=== PATIENT | male | born 1950 | race Caucasian/White ===

== ENCOUNTER 2020-06-06 06:45 | Inpatient (IN) | payer OTHER, MEDICAID, SELFPAY ==
[~2020-06-06] VITALS: Ht 170.2 cm; Wt 68.9 kg
[2020-06-06 07:03] VITALS: BP_SYST 146
--- NOTE | 2020-06-06 07:03 | NUR ---
Pt biba from [facility] to bed 8 for evaluation. Hooked to cont quality assurance monitor. Siderails up x2
--- NOTE | 2020-06-06 07:10 | NUR ---
Patient biba in the ED for low oxygen saturation per facility staff. Denied any chest pain or shortness of breath. Denied any fevers, chills, nausea or vomiting. Patient is alert and oriented x3, respirations even and unlabored, and speaking in full sentences. VSS, pain level 0/10. Informed of the approximate wait time. Instructed to notify ED staff for any changes in condition or worsening of symptoms while waiting to be seen by an ED provider. Patient verbalized understanding.
--- NOTE | 2020-06-06 07:15 | NUR ---
# 20 gauge angiocath placed to right hand. Use of asceptic technique. Opsite placed over site. Blood return noted. Blood for lab drawn from site. Flushed with 10 cc of normal saline. No evidence of infiltration noted. Patient tolerated well.
--- NOTE | 2020-06-06 07:25 | NUR ---
assessment technician at bedside collecting blood specimen as ordered by Dr. Vanessa Back. Patient tolerated the procedure well.
[2020-06-06] MEDS ORDERED: IPRATROPIUM/ALBUTEROL SULFATE 3 ML AMPUL.NEB (DUONEB) INH ONE (07:30)
--- NOTE | 2020-06-06 07:44 | NUR ---
X-ray done at bedside as ordered by Dr. Vanessa Back. Patient tolerated the procedure well.
[2020-06-06 07:51] LABS: BASOPHILS # (AUTO) 0.1 K/uL (0.0-0.2); BASOPHILS % (AUTO) 0.5 % (0.0-2.0); EOSINOPHILS % (AUTO) 0.2 % (0.0-4.0); HEMOGLOBIN 13.4 g/dL (14.0-18.0); MEAN CORPUSCULAR HEMOGLOBIN 30 pg (27-31); MEAN CORPUSCULAR HGB CONC 33 % (32-36); MEAN CORPUSCULAR VOLUME 91 fL (79.0-98.0); MONOCYTES # (AUTO) 0.5 K/uL (0.0-1.0); MONOCYTES % (AUTO) 2.2 % (1.7-9.3); NEUTROPHILS % (AUTO) 92.1 % (40.0-70.0); PLATELET COUNT (AUTO) 372 K/uL (130-430); RED BLOOD CELL COUNT(AUTO) 4.53 MIL/uL (4.2-6.2); RED CELL DISTRIBUTION WIDTH 15.6 % (9.0-15.0); WHITE BLOOD COUNT (AUTO) 20.6 K/uL (4.8-10.8)
[2020-06-06] MEDS ORDERED: LORazepam 2 MG/ML VIAL IVP ONE (08:00)
--- NOTE | 2020-06-06 08:00 | NUR ---
Administered Ativan 1mg IVP as ordered by Dr. Vanessa Back. Patient tolerated the medications well. See eMAR for details.
[2020-06-06 08:11] LABS: CALCIUM 10.8 mg/dL (8.4-11.0); CREATININE 2.7 mg/dL (0.55-1.30); POTASSIUM 3.6 mmol/L (3.5-5.1)
[2020-06-06 08:15] LABS: INR 1.2 (0.80-1.20)
[2020-06-06 08:17] LABS: ALBUMIN 3.1 g/dL (3.4-4.8); TOTAL BILIRUBIN 0.6 mg/dL (0.0-1.0)
[2020-06-06] MEDS ORDERED: LORazepam 2 MG/ML VIAL ONE (08:17)
--- NOTE | 2020-06-06 08:31 | NUR ---
RT at bedside administering inhalation treatment as ordered by Dr. Vanessa Back. Patient tolerated the medication well.
[2020-06-06] MEDS ORDERED: cefTRIAXone 1 GM IVPB PREMIX 50 ML IV ONE (09:15)
[2020-06-06] MEDS ORDERED: NS 1000 ML IV.SOLN IV ONE (09:15)
[2020-06-06] MEDS ORDERED: KETAMINE 30 MG/3 ML SYRINGE IVP ONE (09:15)
[2020-06-06] MEDS ORDERED: KETAMINE 30 MG/3 ML SYRINGE ONE (09:35)
[2020-06-06] MEDS ORDERED: INSULIN ASPART 100 UNITS/ML, 10 ML VIAL (NovoLOG) SUBCUT PRN (09:45)
--- NOTE | 2020-06-06 09:47 | NUR ---
Patient will be admitted to care of Dr. Zak Griffin. Admitted to telemetry unit. Waiting for room assignment, MST drywall stripper not available. Belongings list to be completed. Complete and up to date summary to be report printed. SBAR report to be given at bedside with opportunity for questions.
[2020-06-06 09:50] LABS: BILIRUBIN,URINE NEGATIVE (NEGATIVE); BLOOD, URINE 3+ (NEGATIVE); COLOR,URINE YELLOW (YELLOW); GLUCOSE,URINE 1+ (NEGATIVE); KETONES,URINE NEGATIVE (NEGATIVE); LEUKOCYTE ESTERASE ,URINE 3+ (NEGATIVE); NITRITE, URINE NEGATIVE (NEGATIVE); PROTEIN URINE 2+ (NEGATIVE); UROBILINOGEN,URINE 0.2 (0.2-1.0)
[2020-06-06 09:52] LABS: CLARITY/URINE CLOUDY (CLEAR)
[2020-06-06] MEDS ORDERED: LIP20 PO (09:54)
[2020-06-06] MEDS ORDERED: BISA10SU61 RC (09:54)
[2020-06-06] MEDS ORDERED: HYD10 PO (09:54)
[2020-06-06] MEDS ORDERED: HYDR20TA PO (09:54)
[2020-06-06] MEDS ORDERED: ACET325T PO (09:54)
[2020-06-06] MEDS ORDERED: ACET-73 PO (09:54)
[2020-06-06] MEDS ORDERED: CYAN500T47 PO (09:54)
[2020-06-06] MEDS ORDERED: CRAN500T2 PO (09:54)
[2020-06-06] MEDS ORDERED: DOCU-144 PO (09:54)
[2020-06-06] MEDS ORDERED: ASPI-1393 PO (09:54)
[2020-06-06 09:58] LABS: BACTERIA,URINE FEW /HPF (None Seen); MUCUS,URINE 1+ /LPF (None Seen); WBC,URINE >100 /HPF (0-3)
[2020-06-06] MEDS ORDERED: FERR-69 PO (10:06)
[2020-06-06] MEDS ORDERED: DOLU1TAB PO (10:06)
[2020-06-06] MEDS ORDERED: LACT10SO7 PO (10:06)
[2020-06-06] MEDS ORDERED: LATA7.5D OP (10:06)
[2020-06-06] MEDS ORDERED: CYM30 PO (10:06)
--- NOTE | 2020-06-06 10:24 | NUR ---
Patient will be admitted to care of Dr. Griffin. Admitted to Telemetry unit. Will go to room 103B. Belongings list completed. Complete and up to date summary report printed. SBAR report to be given at bedside with opportunity for questions.
[2020-06-06] MEDS ORDERED: INSULIN LISPRO SLIDING SCALE 100 UNITS/ML VIAL (humaLOG) SUBCUT PRN (10:30)
[2020-06-06] MEDS ORDERED: GLUCOSE (DEXTROSE) ORAL GEL -Adults PO PRN (10:45)
[2020-06-06] MEDS ORDERED: D5W 1,000 ML IV PRN (10:45)
[2020-06-06] MEDS ORDERED: DEXTROSE 50%-WATER 50 ML DISP.SYRIN IVP PRN (10:45)
--- NOTE | 2020-06-06 10:55 | NUR ---
ADMISSION NOTE Received patient from ER via gurney. Patient admitted with diagnosis of urosepsis. Patient is awake, alert, oriented X 3. Patient oriented to hospital room, call light, toileting, pain management and safety-teach back done. Patient informed that will kiersten nurse and that their room number is 110B. Personal belongings checked and Belongings List documented. Call light within reach.02@ 3liters nasal cannula @ 98%.
--- NOTE | 2020-06-06 11:04 | NUR ---
Received lactic acid 11.0.patient received 2 liters of normal saline at ER.
--- NOTE | 2020-06-06 11:17 | NUR ---
CONSULT ID SEPSIS DR PHILL CARTER [id number] S/W GABE MATTHEWS
--- NOTE | 2020-06-06 11:20 | NUR ---
photos of the wound cleanse with ns, photos taken and wound care done. wound care nurse informed and consulted. please see chart of the photos.
[2020-06-06 12:00] VITALS: BP_SYST 91
[2020-06-06] MEDS: KCL 20 mEq in NS 1000 mL 1,000 ML IV SCH ×3 (12:07→21:29)
--- NOTE | 2020-06-06 12:30 | NUR ---
blood sugar 202. held insulin coverage patient refused to eat lunch
[2020-06-06] MEDS ORDERED: FLU VACC QS2020-21(65UP)/PF 0.7 ML/SYRINGE I.M. PRN (12:45)
[2020-06-06 14:27] VITALS: BP_SYST 91
[2020-06-06 15:32] VITALS: BP_SYST 101
--- NOTE | 2020-06-06 16:00 | NUR ---
Tamika Griffin for d-dimer elevated.s/w debora answering services. waiting to callback.
[2020-06-06] MEDS ORDERED: ASPIRIN 81 MG TABLET(ECOTRIN) PO ONE (16:45)
[2020-06-06] MEDS ORDERED: ACETAMINOPHEN 325 MG TABLET PO PRN (16:45)
[2020-06-06] MEDS ORDERED: HYDROCORTISONE 10 MG TABLET (CORTEF) PO SCH (16:45)
[2020-06-06] MEDS ORDERED: HYDROCORTISONE 10 MG TABLET (CORTEF) PO ONE (16:45)
[2020-06-06] MEDS ORDERED: DOCUSATE SODIUM 100 MG CAPSULE PO SCH (16:45)
[2020-06-06] MEDS ORDERED: DULoxetine HCL 30 MG CAPSULE.DR (CYMBALTA) PO ONE (16:45)
[2020-06-06] MEDS ORDERED: BISACODYL 10 MG/SUPPOSITORY RC ONE (16:45)
--- NOTE | 2020-06-06 16:52 | NUR ---
CONSULT NEPHROLOGY ACUTE RENAL FAILURE DR SAMRIENTO [phone] S/W [facility]
--- NOTE | 2020-06-06 16:58 | NUR ---
CONSULT HEMATOLOGY ELEVATED D DIMER DR PEREZ [phone] S/W [facility] OFFICE
--- NOTE | 2020-06-06 17:04 | NUR ---
MD SANDOVAL IS HERE INFORMED ABOUT THE LABS RESULT. NEW ORDER RECEIVED. S/W NM TECH STATED WILL DO VQ SCAN TOMORROW @ 8 AM.
--- NOTE | 2020-06-06 18:00 | NUR ---
blood sugar 192. held insulin coverage patient wants to eat later. will endorsed to incoming nurse. vital sign stable, afebrile. saturation 96-98%. on 3 liters nasal cannula.
--- NOTE | 2020-06-06 19:55 | NUR ---
OPENING NOTES Received report from RODNEY Biswas. Patient resting in bed, AAOx3, breathing evenly on 3L of oxygen via NC. Patient has an IV on the right hand 20g, patent and benign, IVF running, patient tolerating it well. Patient said he will eat soon, will notify CAR FERRY MASTER to help feed the patient. Educated patient on plan of care, fall/safety/aspiration precautions, call light system, patient stated understanding. No s/s of distress at this time, no other needs at this time. Fall/safety/aspiration precautions, will continue to monitor.
[2020-06-06] MEDS: DOCUSATE SODIUM 100 MG CAPSULE PO SCH (20:48)
[2020-06-06] MEDS: ATORVASTATIN 20 MG TABLET PO SCH (20:49)
[2020-06-06 20:50] VITALS: BP_SYST 149
[2020-06-06] MEDS: INSULIN LISPRO SLIDING SCALE 100 UNITS/ML VIAL (humaLOG) SUBCUT PRN (21:01)
--- NOTE | 2020-06-06 21:01 | NUR ---
MEDICATIONS/ROUNDS Patient resting in bed, awake, breathing evenly on 3L of oxygen via NC. Educated patient on due medications, patient stated understanding. BS checked, coverage was needed and given. Administered medications, patient tolerated them well. Patient was fed and ate 25% with ELECTRIC SERVICEMAN. Hygiene care was done with ELECTRIC SERVICEMAN. Patient left watching TV. No s/s of distress at this time, no other needs at this time. Fall/safety/aspiration precautions, will continue to monitor.
[2020-06-06 23:45] VITALS: BP_SYST 94
--- NOTE | 2020-06-06 23:45 | NUR ---
AIRCRAFT MAINTENANCE MANAGER REPORTED PATIENT'S BP 80'S/40'S. PATIENT'S SBP LOW 70'S, HIGHEST BP TAKEN 94/58, PATIENT LETHARGIC , COOL, AND CLAMMY, 02 SAT ON 3L OF OXYGEN VIA NC FLUCTUATING 90-98%, BS 231. PATIENT STILL RESPONDING TO STIMULI. ASKED COFFEE SHOP MANAGER TO PAGE DR. SANDOVAL.
--- NOTE | 2020-06-06 23:46 | NUR ---
PAGES I PAGED DR. NIKO Bolton I SPOKE WITH JOYCE
--- NOTE | 2020-06-06 23:50 | NUR ---
PATIENT'S SBP LOW 70'S, HIGHEST BP TAKEN 94/58, PATIENT LETHARGIC , COOL, AND CLAMMY, AND SHAKING, BS TAKEN, RESULT WAS 231. SPOKE AND NOTIFIED DR. LORI MD ORDERED TO TRANSFER TO ICU#1 FOR LOW BP AND LETHARGY, 1L NS BOLUS THEN CONTINUE CURRENT IVF AFTER, HEPARIN DRIP PER PHARMACY, DISCONTINUE ROCEPHIN, ZOSYN 4.5GM IVPB Q8H, PULMONARY CONSULT WITH DR. HAY FOR POSSIBLE PE.
[2020-06-07] VITALS (24 sets, daily range): BP systolic 55–146
[2020-06-07] MEDS ORDERED: NACL 0.9% 1,000 ML IV ONE
[2020-06-07] MEDS ORDERED: *HEPARIN PER PHARMACY XX ONE
--- NOTE | 2020-06-07 00:02 | NUR ---
LATEST BP 83/42, O2 SAT 98% ON 3L OF OXYGEN VIA NC, PATIENT STILL RESPONDING AND AOX2-3, LETHARGIC. 1L NS BOLUS WAS STARTED ON RIGHT HAND 20G. NOTIFIED CLINICAL INFORMATICS SPECIALIST REGARDING NEED TO TRANSFER PATIENT TO ICU, SHE SAID TO CALL ICU. ICU CHARGE NURSE NOTIFIED REGARDING PATIENT AND ALSO MD WANTS PATIENT TO BE ON ICU#1, CHARGE NURSE SAID ROOM #1 IS NOT AVAILABLE AND TO TRANSFER PATIENT 0015. PATIENT BEING PREPARED FOR TRANSFER.
[2020-06-07] MEDS ORDERED: HEPARIN SODIUM,PORCINE 2000 UNITS/0.4 ML BOLUS IVP PRN (00:15)
[2020-06-07] MEDS ORDERED: HEPARIN 25,000 UNITS in 250 ML PREMIX IV PRN (00:15)
[2020-06-07] MEDS ORDERED: HEPARIN SODIUM,PORCINE 3000 UNITS/0.6 ML BOLUS IVP PRN (00:15)
--- NOTE | 2020-06-07 00:20 | NUR ---
TRANSFER Pt received from telemetry via bed accompanied by telemetry staff. No IV site present. Pt alert/ oriented to self and place. Pt incontinent of urine. Oxygen in use 3L/min nasal cannula. Systolic BP 55. One attempt with 18ga successful right wrist, IV fluids resumed.
[2020-06-07] MEDS ORDERED: HEPARIN SODIUM,PORCINE 5,000 UNITS/ML VIAL IV ONE (00:30)
--- NOTE | 2020-06-07 00:30 | NUR ---
TRANSFERRED TO ICU BED 2, REPORT GIVEN VIA SBAR TO RODNEY ASHTON.
--- NOTE | 2020-06-07 01:32 | NUR ---
PAGED FOR ORDERS DIALED: [phone] SPOKE TO: SANCHEZ
--- NOTE | 2020-06-07 01:50 | NUR ---
PAGED FOR ORDERS (2ND ATTEMPT) DIALED: [phone] SPOKE TO: SANCHEZ
[2020-06-07] MEDS: HYDROCORTISONE SOD SUCC 100 MG/2 ML VIAL IVP SCH ×4 (02:00→21:14)
--- NOTE | 2020-06-07 02:16 | NUR ---
PAGED FOR ORDERS (3RD ATTEMPT) DIALED: [phone] SPOKE TO: SANCHEZ
[2020-06-07] MEDS ORDERED: HYDROCORTISONE SOD SUCC 100 MG/2 ML VIAL ONE (02:17)
--- NOTE | 2020-06-07 02:20 | NUR ---
DR LORI Griffin notified regarding low MAP, you placement for output, and PICC line placement (pt a difficult stick). Orders received. 1. Levophed drip ordered 2. You insertion 3. PICC line placement
[2020-06-07] MEDS ORDERED: NOREPINEPHRINE BITARTRATE 4 MG in D5W 246 ML IV PRN (02:30)
--- NOTE | 2020-06-07 02:45 | NUR ---
Holbrook: 16F Holbrook catheter placed using sterile technique, patient tolerated well. Cloudy Yellow Urine noted, hanging below bladder and draining. Catheter secured into place onto right inner thigh.
--- NOTE | 2020-06-07 02:50 | NUR ---
PIV: 22G PIV placed into Right AC, secured into place, flash present and flushed with NS.
[2020-06-07] MEDS ORDERED: NOREPINEPHRINE 4 MG/4 ML VIAL IV ONE (02:58)
[2020-06-07] MEDS ORDERED: PIPERACILLIN/TAZOBACTAM 4.5 GM/VIAL (ZOSYN) IV ONE (04:14)
[2020-06-07] MEDS ORDERED: PIPERACILLIN/TAZO 4.5GM/DEX-IS 100 ML IV SCH (06:00)
[2020-06-07] MEDS: INSULIN LISPRO SLIDING SCALE 100 UNITS/ML VIAL (humaLOG) SUBCUT PRN ×4 (07:20→20:41)
--- NOTE | 2020-06-07 07:25 | NUR ---
OPENING NOTE Patient resting in the bed. No acute distress. On O2 3L/min via NC. O2 sat=97%. Adjusted O2 to 2L/min via NC. O2 sat=97%. Respiration even and unlabored. Skin warm and dry to touch. IV intact to LAC, no redness, no swelling, no drainage. On KCL 20mEq in NS at 125ml/hr and Heparin drip at 1200units/hr, infusing well. SL intact to RAC and right wrist, no redness, no swelling, patent. F/C intact, drain gravity with cloudy urine. Safety measure maintained. Call light within reached. Bed locked in low position, side rails up. Will continue to monitor.
--- NOTE | 2020-06-07 08:36 | NUR ---
Nutrition Update Marcelino scale 16 noted. Pt admitted for sepsis. Diet: [facility], [place] Diet BMI: 22.7 kg/m2 RD to follow per nutrition care standards.
[2020-06-07] MEDS: BISACODYL 10 MG/SUPPOSITORY RC SCH ×2 (09:00→09:11)
[2020-06-07] MEDS ORDERED: cefTRIAXone 1 GM in D5W 50 ML IV SCH (09:00)
[2020-06-07] MEDS ORDERED: HYDROCORTISONE 10 MG TABLET (CORTEF) PO SCH (09:00)
[2020-06-07] MEDS: DULoxetine HCL 30 MG CAPSULE.DR (CYMBALTA) PO SCH (09:11)
[2020-06-07] MEDS: KCL 20 mEq in NS 1000 mL 1,000 ML IV SCH ×2 (09:11→17:53)
[2020-06-07] MEDS: ASPIRIN 81 MG TABLET(ECOTRIN) PO SCH (09:11)
[2020-06-07] MEDS: DOCUSATE SODIUM 100 MG CAPSULE PO SCH ×2 (09:11→20:34)
--- NOTE | 2020-06-07 09:27 | NUR ---
HEPARIN DRIP STOPPED PER PROTOCOL.
--- NOTE | 2020-06-07 09:32 | NUR ---
Provided PTT from critical value call from lab to RODNEY TRAN. PTT > 150.
--- NOTE | 2020-06-07 09:55 | NUR ---
OFF UNIT TO VQ SCAN VIA GURNEY WITH PORTABLE HEART MONITOR IN STABLE CONDITION.
--- NOTE | 2020-06-07 10:20 | NUR ---
BACK TO UNIT FROM VQ SCAN VIA GURNEY WITH PORTABLE HEART MONITOR IN STABLE CONDITION.
--- NOTE | 2020-06-07 10:45 | NUR ---
SEEN AND EXAMINED BY STERLING HURTADO.
--- NOTE | 2020-06-07 11:23 | NUR ---
SEEN AND EXAMINED BY PHILL MARKS DEVESH.
--- NOTE | 2020-06-07 12:44 | NUR ---
II=476 Humalog insulin 4 units given per sliding scale. No acute distress. Continue on O2 2L/min via NC. F/C intact, drain gravity. Safety measure maintained. Call light within reached. Continue to monitor.
[2020-06-07] MEDS ORDERED: MENTHOL/ZINC OXIDE 113 GM OINT. TP PRN (13:45)
--- NOTE | 2020-06-07 14:41 | NUR ---
PTT - 63.8 Heparin drip restarted @ 1000 units/hr Witnessed IV drip titration.
--- NOTE | 2020-06-07 14:44 | NUR ---
RESUME HEPARIN DRIP PTT=63.8, resume Heparin drip and decreased 200 units per hr from the pervious rate per protocol. Witness by charge nurse Johnny, verify by pharmacist Erich. Will repeat PTT in 6 hr per protocol.
--- NOTE | 2020-06-07 14:50 | NUR ---
PICC LINE PLACEMENT DONE AT BEDSIDE AND OKAY TO USE PER PICC NURSE.
--- NOTE | 2020-06-07 15:08 | NUR ---
WOUND EVALUATION: Wound Consult received from Dr. Griffin. Thank you, Dr. Griffin, for the consult. Patient received in a [place] Bed with an IsoFlex LUCHO mattress with low air loss therapy, awake, alert, confused. Patient is unable to turn in bed independently. Marcelino Score is a 17. Past Medical History: HIV, Hyperlipidemia, Glaucoma. Admitted for Acute Hypoxia and Altered Mental Status. Diagnosed with Sepsis, Acute Renal Failure and Diabetes Mellitus. Recent Labs: WBC 20.6, RBC 4.53, hgb 13.4, hct 41.0, POC glucose 236, sodium 132, chloride 97, BUN 26, creatinine 2.70, GFR 25, glucose 226, alkaline phosphatase 135, BNP 199, albumin 3.1, PTT 63.8, D-dimer 1590.Microbiology: Blood culture results x2 in progress. Urine culture results in progress. MRSA screen results in progress. Intrinsic factors that delay wound healing: HIV, Acute Renal Failure, Hypoalbuminemia, Diabetes Mellitus. Extrinsic factors that delay wound healing: Decreased immobility. Wound Assessment: 1. Left Perianal area: Generalized erythema with MASD from IAD, present on admission. Open area has 100% yellow tissue (may be infected versus pressure ulcer). No odor, no drainage. Periwound erythematous. Surrounding tissue erythematous. Wound measures 0.7 cm x 0.3 cm. Recommend: Cleanse wound with normal saline. Apply Calmoseptine cream to wound and evi-wound. Apply Venelex ointment to wound bed. Cover with 4x4 foam dressing. Perform wound care daily, and as needed for dressing soiling or dislodgement. 2. Perianal area: Generalized erythema from IAD, present on admission. Recommend: Cleanse site with mild soap and water. Apply Calmoseptine cream to site. Perform site care qid as needed for soiling. Consider fecal management system if stool is loose and voluminous. 3. Sacral area: sDTI, present on admission. Site has dark purple discoloration. No odor, no drainage. Site measures 1.7 cm x 0.3 cm. Recommend: Cover site with sacral foam dressing. Change dressing daily and as needed for soiling or dislodgment. Also recommend: Reposition patient Side to side only every 2 hours with pillow support and off-load pressure areas with pillows for pressure re-distribution. Offload, elevate and float bilateral heels with one pillow lengthwise under each extremity at all times. Perform skin care and monitor skin integrity Q shift. Use Calmoseptine cream on buttocks and other moisture susceptible areas QID and as needed for soiling. Maintain patient on a low air-loss mattress. Addendum: 06/07/20 at 1548 by Yamil Londono RN Addendum: 4. Bilateral Lower Extremities: Multiple, multiple dry excoriations, present on admission. Recommend: No dressings needed. Continue to monitor sites every shift.
--- NOTE | 2020-06-07 17:15 | NUR ---
CLOSING NOTE Patient resting in the bed. No acute distress. PICC line intact to CHANTELLE, no redness, no swelling, patent, covered with clean and dry dressing. ON Heparin drip at 1000 units/hr and KCl 20mEq in NS at 125ml.hr, infusing well. F/C intact, drain gravity. All needs met. Safety measure maintained. Call light within reached. Bed locked in low position, side rails up. Will endorse to night nurse.
[2020-06-07] MEDS: PIPERACILLIN/TAZO 2.25G/DEX-IS 50 ML IV SCH (17:53)
[2020-06-07] MEDS: ACETAMINOPHEN 500 MG TABLET PO PRN ×2 (18:08→20:38)
--- NOTE | 2020-06-07 18:15 | NUR ---
SEEN AND EXAMINED BY ALESSANDRA BALLRAD WITH ORDER RECEIVED. PER DR. PEREZ, D/C HEPARIN DRIP IF US OF DROPPLER STUDY WITH NEGATIVE DVT.
--- NOTE | 2020-06-07 19:15 | NUR ---
change of shift.;victor hugo present. inquired of pt's general status.sherriern day-shift apprised of pt's general status.masoud conveyed to vq-scan results.us:doppler to be performed w/in the evening.the heparin drip infusing@ the rate:1000-u/hr=10ml/hr.the pt.submitted to hemo-dialysis therapy:06/07/20.pt.presents quiescent affect;calm,resting. pt.presents picc line;location;rt.upper bicept.intact.iv fluids infusing.pt.presents heparin drip infusing.pt.presents you cath intact;patent urine content present.general status stable.respiratory status stable.o2-sat%=98%.o2 therapy adminstered@ the rate;2l/min /hr via nasal cannulae.
--- NOTE | 2020-06-07 20:00 | NUR ---
pt.assessed.v/s assessed values w/in normal limits.o2-sat%=98%.picc line intact;patent iv fluids infusing.heparin-drip infusing@the rate:10ml/zu=5277-x/hr.you cath intact;patent urine content present.pt.assessed for cleanliness.pt.repositioned.general status stable.respiratory status stable;unlabored.call light/telephone placed w/in access of the pt.
--- NOTE | 2020-06-07 20:30 | NUR ---
i have assessed the blood glucose;value;207mg/dl.i have apprised the pt.of the blood glucose value.pt.will required insulin coverage administration per the sliding scale.parameters.
[2020-06-07] MEDS: ATORVASTATIN 20 MG TABLET PO SCH (20:34)
--- NOTE | 2020-06-07 21:00 | NUR ---
2100pmedications administered.pt.had requested dinner tray to be fed w medications.i have acquiest to the pt's requests pt.capable ti ingest po medications w/out difficulty.i have administered insulin;humalog;4-units per the sliding scale parameters. Addendum: 06/08/20 at 0259 by Kendall Paniagua RN pt.had requested medication;pain.i have administered tylenol:1000mg po ex-strength.to assess the efficacy of the pain medication per pain medication protocol.
--- NOTE | 2020-06-07 22:00 | NUR ---
based upon ptt level;47.9 :heparin drip protocol. i have increased the heparin drip rate to 11ml/hr =1100u/hr. Addendum: 06/07/20 at 2220 by Kendall Paniagua RN Amended: Links added.
--- NOTE | 2020-06-07 22:00 | NUR ---
Lise Argueta increase rate of heparin drip from 1000 units/hr to 1100 units per hour equivalent to 10-11mls/hr.
--- NOTE | 2020-06-07 22:30 | NUR ---
us:doppler tech present.preformed the doppler scan of the lower extremities;bilateral r/o dvt.preliminary results.the tech stated negative dvt lower extremities bilateral
--- NOTE | 2020-06-07 22:30 | NUR ---
had ordered:d/c the heparin drip contingent upon the results of the us:doppler scan.if results negative dvt lower extremities bilateral.i have d/c the heparin-drip.i have apprised yaneli/chg.
--- NOTE | 2020-06-07 22:37 | NUR ---
PAGED DR. SANDOVAL FOR ORDERS DIALED: [phone] SPOKE TO: SANCHEZ
--- NOTE | 2020-06-07 22:59 | NUR ---
PAGED DR. SANDOVAL FOR ORDERS (2ND ATTEMPT) DIALED: [phone] SPOKE TO: SANCHEZ
[2020-06-07] MEDS ORDERED: MORPHINE 4 MG/ML INJ. SYRINGE IVP PRN (23:15)
[2020-06-08] VITALS (20 sets, daily range): BP systolic 97–144
[2020-06-08] MEDS ORDERED: NALOXONE HCL 0.4 MG/ML AMP (NARCAN) IVP PRN
--- NOTE | 2020-06-08 | NUR ---
pt.assessed.v/s assessed values w/in normal limits.pt.had requested medication;pain.i have administered.morphine;2mg ivp.to assess the efficacy of the pain medication per pain mgx protcol.pt.assessed for cleanliness.pt.repositioned.picc line intact;patent iv fluids infusing.i have administered zosyn;abx;ivpb midnight dose.general status stable.respiratory status;02-sat%=98%.call light/telephone w/in access of the pt.
[2020-06-08] MEDS: MORPHINE 2 MG/ML INJ. SYRINGE IVP PRN ×5 (00:04→23:14)
[2020-06-08] MEDS: PIPERACILLIN/TAZO 2.25G/DEX-IS 50 ML IV SCH ×5 (00:05→23:15)
[2020-06-08] MEDS ORDERED: MORPHINE 2 MG/ML INJ. SYRINGE ONE (00:20)
--- NOTE | 2020-06-08 01:00 | NUR ---
pt.presents affect;restless/agitation.i have administered ativan;1mg ivp;to assess the efficacy of the medication. per medication protocol.general status stable.respiratory status stable;unlabored.
[2020-06-08] MEDS: LORazepam 2 MG/ML VIAL IVP PRN ×4 (01:17→16:52)
[2020-06-08] MEDS ORDERED: LORazepam 2 MG/ML VIAL ONE ×2 (01:35→05:51)
--- NOTE | 2020-06-08 02:00 | NUR ---
pt.assessed.v/s assessed values w/in normal limits.o2-sat%=98%.picc line intact;patent iv fluids infusing.you cath intact;patent urine content present. per flacc pain mgx pt.absent facial grimaces/body posturing.pt.assessed for cleanliness.pt.repositioned.general status stable,respiratory status stable;unlabored.call light/telephone placed w/in access of the pt.
--- NOTE | 2020-06-08 04:00 | NUR ---
pt.assessed.v/s assessed.pt.requested medication;pain.i have administered morphine;2mg ivp.to assess the efficacy of the pain medication per pain mgx protocol.o2-sat%=98%.picc line intact;patent iv fluids infusing.i have changed the iv fluids bag.you cath intact;patent urine content present.pt.had requested water;fresh.i have provide the water.general status stable.respiratory status stable;unlabored.call light/telephone placed w/in access of the pt.
[2020-06-08] MEDS: KCL 20 mEq in NS 1000 mL 1,000 ML IV SCH ×3 (04:26→23:56)
[2020-06-08] MEDS: HYDROCORTISONE SOD SUCC 100 MG/2 ML VIAL IVP SCH ×3 (05:28→21:34)
--- NOTE | 2020-06-08 06:25 | NUR ---
pt.assessed.pt.presented affect;restless.i have administered ativan;1mg ivp.pt.requested medication;pain.i have administered morphine;2mg ivp. v/s values w/in normal limits.iv access picc line intact;patent you cath intact;patent urine content present.o2-sat%=98%pt.assessed for cleanliness.pt.repositioned.blood glucose assessed value;201.mg/dl.i have administered insulin;humalog;2-units. call light/telephone placed w/in access of the pt. Addendum: 06/08/20 at 0631 by Kendall Paniagua RN i have weighed the pt.2/t chf dx.
[2020-06-08] MEDS: INSULIN LISPRO SLIDING SCALE 100 UNITS/ML VIAL (humaLOG) SUBCUT PRN ×4 (06:35→21:38)
[2020-06-08 07:26] LABS: BASOPHILS % (AUTO) 0.2 % (0.0-2.0); EOSINOPHILS % (AUTO) 0.1 % (0.0-4.0); HEMATOCRIT 26.7 % (36-54); HEMOGLOBIN 8.9 g/dL (14.0-18.0); LYMPHOCYTES % (AUTO) 10.2 % (20.5-51.5); MEAN CORPUSCULAR HEMOGLOBIN 30 pg (27-31); MEAN CORPUSCULAR HGB CONC 33 % (32-36); MEAN CORPUSCULAR VOLUME 90 fL (79.0-98.0); MONOCYTES # (AUTO) 0.4 K/uL (0.0-1.0); NEUTROPHILS # (AUTO) 8.3 K/uL (1.8-7.7); NEUTROPHILS % (AUTO) 85.5 % (40.0-70.0); PLATELET COUNT (AUTO) 167 K/uL (130-430); RED BLOOD CELL COUNT(AUTO) 2.98 MIL/uL (4.2-6.2); RED CELL DISTRIBUTION WIDTH 15.5 % (9.0-15.0); WHITE BLOOD COUNT (AUTO) 9.7 K/uL (4.8-10.8)
[2020-06-08 07:48] LABS: TOTAL IRON BIND. CAPACITY 103 ug/dL (250-450)
[2020-06-08 07:56] LABS: ALBUMIN 2.1 g/dL (3.4-4.8); CALCIUM 8.1 mg/dL (8.4-11.0); CREATININE 2.11 mg/dL (0.55-1.30); TOTAL BILIRUBIN 0.3 mg/dL (0.0-1.0)
[2020-06-08] MEDS: DOCUSATE SODIUM 100 MG CAPSULE PO SCH ×2 (08:22→20:22)
[2020-06-08] MEDS: DULoxetine HCL 30 MG CAPSULE.DR (CYMBALTA) PO SCH (08:22)
[2020-06-08] MEDS: BISACODYL 10 MG/SUPPOSITORY RC SCH (08:22)
[2020-06-08] MEDS: ASPIRIN 81 MG TABLET(ECOTRIN) PO SCH (08:23)
[2020-06-08 08:25] LABS: THYROID STIMULATING HORMONE 0.18 uIu/mL (0.34-4.82)
--- NOTE | 2020-06-08 10:00 | NUR ---
30-Received patient awake alert oriented to person and time with O2 2 liters nasal cannula O2 saturation 98% HOB at 30 degrees. With ongoing IVF NS with 20 meq KCL at 125ml/hour via right PICC line dressing clean dry intact with biopatch, with good blood return easily flushes. With you catheter to gravity drainage with clear yellow output with securement device. Patient on a airloss mattress. Sacral foam dressing clean dry intact. Elevated bilateral heels with pillow support. 0830-Patient fed breakfast, aspiration precaution done. Oral care done. 1000-Made rounds with Dr Daugherty at the bedside,plan of care was discussed verbalized understanding Addendum: 06/08/20 at 1916 by Beverly Og RN 0730-Received patient awake alert oriented to person and time with O2 2 liters nasal cannula O2 saturation 98% HOB at 30 degrees. With ongoing IVF NS with 20 meq KCL at 125ml/hour via right PICC line dressing clean dry intact with biopatch, with good blood return easily flushes. With you catheter to gravity drainage with clear yellow output with securement device. Patient on a airloss mattress. Sacral foam dressing clean dry intact. Elevated bilateral heels with pillow support. refused SCD educated patient regarding importance. with left wrist immobilzer patient verbalized he came to the hospital with it. right FA IV removed catheter intact 0830-Patient fed breakfast, aspiration precaution done. Oral care done. 1000-Made rounds with Dr Daugherty at the bedside,plan of care was discussed verbalized understanding
--- NOTE | 2020-06-08 10:27 | NUR ---
1007-Chanda from lab called reported positive MRSA nares. Called Dr Bello awaiting reply 1027-Dr Bello called and notified of MRSA nares with new orders carried out. Also robertfied of WBC and other lab reports with new orders carried out
--- NOTE | 2020-06-08 10:28 | NUR ---
Contact precaution done. Educated patient on PPE and good handwashing reorientation done
[2020-06-08] MEDS ORDERED: MUPIROCIN 2% TOPICAL OINTMENT 22 GM NS ONE (11:00)
--- NOTE | 2020-06-08 12:00 | NUR ---
No acute distress at this time. denies pain 0/10 scale. no respiratory distress. frequent reorientation done. continue to monitor.
--- NOTE | 2020-06-08 14:17 | NUR ---
Dietitian Recommendations * Recommend [facility] diet w/ Glucerna TID, Reji BID (supplements provide an additional 840 kcal/day, 35 gm protein/day) CECILIA ABREU Please refer to Nutrition Assessment for details. Addendum: 06/08/20 at [address] Amended: Links added.
--- NOTE | 2020-06-08 15:22 | NUR ---
patients eyes closed ,O2 saturation 99% on O2 2 liters nasal cannula. no acute distress
--- NOTE | 2020-06-08 19:00 | NUR ---
IV intact no sign and symptoms of infiltration. PICC line dressing clean dry intact . With O2 2 liters nasal cannula HOB at 30 degrees. no respiratory distress O2 saturation 100% Fed patient meals. oral care done. pericare done frequently and applied skin moisture barrier cream. sacral dressing clean dry intact. frequent reorientation done. patient refuses SCD machine education was given. Report given to Vaishali STEVENS, transferred to telemetry as ordered.
--- NOTE | 2020-06-08 19:10 | NUR ---
CHANGE OF SHIFT; report given by ICU nurse, just got transferred from ICU. no respiratory distress. on contact isolation for MRSA nares. on fall risk precaution. call light at bedside.
--- NOTE | 2020-06-08 20:00 | NUR ---
NOTES: pt. awake, alert but disoriented. yells every now and then. O2@ 2 liters per nasal cannula. IV infusing via rt. upper arm PICC line. IV lock on left ac. left arm immobilizer/brace in place. noted bruising on both arms deb. right side. on potline monitor and shows sinus rhythm. you cath to osd. on contact isolation fro mRSA nares. call light at bedside.
[2020-06-08] MEDS: MUPIROCIN 2% TOPICAL OINTMENT 22 GM NS SCH (20:23)
[2020-06-08] MEDS: ATORVASTATIN 20 MG TABLET PO SCH (20:23)
--- NOTE | 2020-06-08 21:40 | NUR ---
NOTES: due medications given. BS checked 215 with sliding scale coverage given. repositioned.
--- NOTE | 2020-06-08 23:15 | NUR ---
NOTES: pt. been yelling that he is hungry and also in pain. gave jello and milk and tolerated well. medicated with Morphine IV as ordered for c/o generalized pain. repositioned. observed contact isolation for MRSA nares.
[2020-06-09] VITALS: BP_SYST 142
--- NOTE | 2020-06-09 00:15 | NUR ---
NOTES: still awake, given water. pt. needs attended. IV antibiotic in progress.
--- NOTE | 2020-06-09 01:32 | NUR ---
NOTES: pt. still awake, been yelling on and off, confused. been asking for water and gave some, asking for pain medicine and reminded been given as well. condition observed.
[2020-06-09] MEDS: ACETAMINOPHEN 500 MG TABLET PO PRN (03:12)
--- NOTE | 2020-06-09 03:16 | NUR ---
NOTES: pt. wants Tylenol ES for his generalized pain and given, more water given. condition observed and guarded.
--- NOTE | 2020-06-09 04:29 | NUR ---
NOTES: kept quiet for a short time and now yelling again, took off O2 and getting anxious. been asking for drink of water.
[2020-06-09] MEDS: LORazepam 2 MG/ML VIAL IVP PRN ×4 (04:52→22:07)
--- NOTE | 2020-06-09 04:55 | NUR ---
NOTES: pt. repositioned, partial am care done. medicated with IV Ativan for anxiety.pulling out his leads/gown. reoriented.
--- NOTE | 2020-06-09 05:30 | NUR ---
NOTES: pt. quiet and get short sleep. continue to monitor.
[2020-06-09] MEDS: PIPERACILLIN/TAZO 2.25G/DEX-IS 50 ML IV SCH (05:50)
--- NOTE | 2020-06-09 06:00 | NUR ---
NOTES: Dr. Dumont here, updated on pt. status. sleeping at his time.
[2020-06-09] MEDS: HYDROCORTISONE SOD SUCC 100 MG/2 ML VIAL IVP SCH ×2 (06:51→17:05)
--- NOTE | 2020-06-09 06:55 | NUR ---
CLOSING NOTES; pt. already awake, yelling, saying he is hungry. IV infusing. you cath intact. BS checked 174, sliding scale coverage given. pt. needs attended. observed contact isolation for MRSA nares. occ bouts on non productive cough. keeps taking off O2. will endorse to incoming shift.
[2020-06-09] MEDS: INSULIN LISPRO SLIDING SCALE 100 UNITS/ML VIAL (humaLOG) SUBCUT PRN ×2 (06:58→22:05)
[2020-06-09 07:11] LABS: FOLATE (FOLIC ACID) 14.4 ng/mL (>3.0)
[2020-06-09 08:00] VITALS: BP_SYST 136
--- NOTE | 2020-06-09 08:00 | NUR ---
initial notes rec patient awake confused and screams at intervals . ivf infusing well on the r upper arm picc line. resp easy and unlabored. no sob noted . on room air at this time. bed to the lowest position and side rails up and locked. essie light within reached.
[2020-06-09] MEDS: BISACODYL 10 MG/SUPPOSITORY RC SCH (09:15)
[2020-06-09] MEDS: DULoxetine HCL 30 MG CAPSULE.DR (CYMBALTA) PO SCH (09:15)
[2020-06-09] MEDS: ASPIRIN 81 MG TABLET(ECOTRIN) PO SCH (09:15)
[2020-06-09] MEDS: DOCUSATE SODIUM 100 MG CAPSULE PO SCH ×2 (09:15→21:43)
[2020-06-09] MEDS: MUPIROCIN 2% TOPICAL OINTMENT 22 GM NS SCH ×2 (09:16→21:43)
[2020-06-09] MEDS: KCL 20 mEq in NS 1000 mL 1,000 ML IV SCH ×2 (09:16→18:37)
[2020-06-09 12:00] VITALS: BP_SYST 130
--- NOTE | 2020-06-09 12:30 | NUR ---
rounds no hypo hyperglycemic reaction noted. bed to the lowest position and call light within reached.
--- NOTE | 2020-06-09 12:36 | NUR ---
Discharge Planning: DCP faxed pt referral to [facility] (F [phone] p [phone]) DCP to follow up Addendum: 06/09/20 at 1521 by Karol Mock DP DCP followed up with Yoana in admissions at [facility] (F [phone] p [phone]) accepting patient, no DC order. DCP made CM and nurse aware.
[2020-06-09] MEDS: LEVOFLOXACIN 250 MG/D5W 50 ML IV SCH (12:38)
[2020-06-09] MEDS: MORPHINE 2 MG/ML INJ. SYRINGE IVP PRN ×2 (13:57→18:39)
--- NOTE | 2020-06-09 14:00 | NUR ---
rounds was medicated for pain by charged nurse and zuri well. no sob noted. call light within reached.
--- NOTE | 2020-06-09 16:00 | NUR ---
rounds sleeps at intervals and screams when awake. no sob noted. call light within reached.
[2020-06-09 16:10] VITALS: BP_SYST 139
--- NOTE | 2020-06-09 18:18 | NUR ---
closing notes asleep at this time. no sob noted. no hypo hyperglycemic reaction noted. resp easy and unlabored. no sob noted. call light withn reached.
--- NOTE | 2020-06-09 19:30 | NUR ---
CHANGE OF SHIFT; endorsed , was just given Morphine IV but still yelling, noted to be hyperventilating. O2 @ 2l/nc. noted also some wheezing. no respiratory distress. on contact isolation for MRSA of nares.
--- NOTE | 2020-06-09 19:50 | NUR ---
NOTES: Dr. Griffin came by, talked to day shift nurse with orders , stat CXR and ABG.
[2020-06-09 20:30] VITALS: BP_SYST 134
--- NOTE | 2020-06-09 20:30 | NUR ---
NOTES: Called Dr. Griffin for ABG result no further order, continue to monitor. VS aware, HR up 115 and hyperventilating. CXR still with pending result.
[2020-06-09] MEDS: ATORVASTATIN 20 MG TABLET PO SCH (21:43)
--- NOTE | 2020-06-09 22:00 | NUR ---
NOTES: due po medications given, drank a cup of water. BS checked 279. sliding scale coverage given.
--- NOTE | 2020-06-09 22:07 | NUR ---
NOTES: pt. very anxious, keeps yelling, medicated with IV Ativan. due has care done. repositioned and turn to sides.
[2020-06-10 00:10] VITALS: BP_SYST 122
--- NOTE | 2020-06-10 00:10 | NUR ---
NOTES: pt. sleeping when made rounds. no respiratory distress. IVF was discontinued. left arm brace intact, noted bruising on both arms. scratches on both lower extremities. keep both heels elevated with pillows. bed alarm on, low position.
--- NOTE | 2020-06-10 01:09 | NUR ---
NOTES: pt. checked, remain sleeping. condition observed. on contact isolation.
--- NOTE | 2020-06-10 02:00 | NUR ---
NOTES: condition observed. still asleep. no respiratory distress.
--- NOTE | 2020-06-10 03:45 | NUR ---
NOTES: pt. awakened, feels rested after sleeping for a while. repositioned, turn to sides. continue to monitor.
--- NOTE | 2020-06-10 04:30 | NUR ---
NOTES: pt. been awake, starts yelling. turn to sides.
--- NOTE | 2020-06-10 05:30 | NUR ---
NOTES: BS checked 85, apple juice given and tolerated well.
[2020-06-10] MEDS: MORPHINE 2 MG/ML INJ. SYRINGE IVP PRN ×3 (05:36→21:13)
--- NOTE | 2020-06-10 05:36 | NUR ---
NOTES: pt. c/o generalized pain, medicated with IV Morphine. repositioned. sacral foam dressing changed. skin intact.
--- NOTE | 2020-06-10 06:00 | NUR ---
NOTES: pt. asleep, quiet but still breathing shallow and hyperventilates, kept on 2 liters O2.
--- NOTE | 2020-06-10 06:34 | NUR ---
CLOSING NOTES; pt. awakened, getting more confused, both legs hanging out of the side rails. repositioned and turn to sides. kept HOB elevated. IV lock with PICC lone on rt. upper arm. you intact. on fall risk, bed alarm on. for further care and assist. contact isolation observed for MRSA nares. unable to use call light. will endorse to day shift.
[2020-06-10 06:54] LABS: ALBUMIN 2.4 g/dL (3.4-4.8); CALCIUM 8.1 mg/dL (8.4-11.0); CREATININE 1.71 mg/dL (0.55-1.30); POTASSIUM 3.5 mmol/L (3.5-5.1); TOTAL BILIRUBIN 0.3 mg/dL (0.0-1.0)
--- NOTE | 2020-06-10 08:00 | NUR ---
Rounds Patient is awake oriented to his name , answers simple question with mild expiratory wheezing oxygen saturation 97% , head of bed kept semi fowlers, assisted in feeding tolerates well even the medication aspiration precaution , needs attended.
[2020-06-10 08:05] VITALS: BP_SYST 132
[2020-06-10] MEDS: HYDROCORTISONE SOD SUCC 100 MG/2 ML VIAL IVP SCH (08:08)
[2020-06-10] MEDS: DULoxetine HCL 30 MG CAPSULE.DR (CYMBALTA) PO SCH (08:08)
[2020-06-10] MEDS: FLUCONAZOLE 200 MG TABLET (DIFLUCAN) PO SCH (08:08)
[2020-06-10] MEDS: ASPIRIN 81 MG TABLET(ECOTRIN) PO SCH (08:08)
[2020-06-10] MEDS: BISACODYL 10 MG/SUPPOSITORY RC SCH (08:08)
[2020-06-10] MEDS: DOCUSATE SODIUM 100 MG CAPSULE PO SCH ×2 (08:08→21:00)
[2020-06-10] MEDS: MUPIROCIN 2% TOPICAL OINTMENT 22 GM NS SCH ×2 (08:14→21:09)
[2020-06-10 08:57] LABS: BASOPHILS # (AUTO) 0.2 K/uL (0.0-0.2); BASOPHILS % (AUTO) 1.2 % (0.0-2.0); EOSINOPHILS # (AUTO) 0.2 K/uL (0.0-0.4); HEMATOCRIT 31.7 % (36-54); HEMOGLOBIN 10.4 g/dL (14.0-18.0); LYMPHOCYTES # (AUTO) 2.5 K/uL (1.0-5.5); LYMPHOCYTES % (AUTO) 15.9 % (20.5-51.5); MEAN CORPUSCULAR HEMOGLOBIN 29 pg (27-31); MEAN CORPUSCULAR HGB CONC 33 % (32-36); MEAN CORPUSCULAR VOLUME 89 fL (79.0-98.0); MONOCYTES % (AUTO) 6.2 % (1.7-9.3); PLATELET COUNT (AUTO) 120 K/uL (130-430); RED BLOOD CELL COUNT(AUTO) 3.57 MIL/uL (4.2-6.2); RED CELL DISTRIBUTION WIDTH 15.4 % (9.0-15.0); WHITE BLOOD COUNT (AUTO) 15.8 K/uL (4.8-10.8)
--- NOTE | 2020-06-10 10:00 | NUR ---
Patient keep on yelling, anxious denies any pain vitals sign stable ,. repositioned ,needs attended, Ativan 1 mg IV push given slowly . safety/fall precaution initiated.
[2020-06-10 10:05] VITALS: BP_SYST 138
[2020-06-10] MEDS: LORazepam 2 MG/ML VIAL IVP PRN (10:07)
[2020-06-10] MEDS: INSULIN LISPRO SLIDING SCALE 100 UNITS/ML VIAL (humaLOG) SUBCUT PRN ×2 (11:17→21:08)
--- NOTE | 2020-06-10 12:20 | NUR ---
assisted in feeding refused only drink ensure 1 bottle tolerates well with out aspiration
[2020-06-10] MEDS: LEVOFLOXACIN 250 MG/D5W 50 ML IV SCH (12:27)
[2020-06-10 12:30] VITALS: BP_SYST 118
[2020-06-10 13:59] LABS: NEUTROPHILS % (AUTO) 75.7 % (40.0-70.0)
--- NOTE | 2020-06-10 14:14 | NUR ---
Skin /care comfort Had a bowel movement , moderate amount perineal care given, skin cream barrier applied , repositioned
--- NOTE | 2020-06-10 15:44 | NUR ---
Patient sleeping after Morphine sulfate was given no sign of acute discomfort or respiratory depression, safety/fall precaution initiated.
[2020-06-10 16:10] VITALS: BP_SYST 122
--- NOTE | 2020-06-10 18:22 | NUR ---
Nutrition F/U (short note d/t high patient load) RD reviewed pt's current EMR including diet Hx, physician notes, nursing notes, pertinent labs/meds/procedures, care trends, and care activity. Current Diet Order: CCHO, Glucerna TID, Reji BID x2 days Pt continues w/ poor PO intakes (average of38% x8 meals) since last RD visit 06/08. Pt is already receiving ONS and wound healing modular. Continue to encourage increase PO intakes. Pt remains at high nutritional risk; RD to F/U within 2-3 days.
--- NOTE | 2020-06-10 19:05 | NUR ---
Bedside report received from day shift nurse. Pt is awake and oriented to his name only. Oxygen is on at 2L/min per NC and no respiratory distress noted. Skin is warm and dry to touch. No signs or symptoms of hypoglycemia or hyperglycemia noted. CHANTELLE PICC noted with the dressing dry and intact. Holbrook Cath to gravity drainage noted with clear yellowish urine. Fall, contact isolation and safety precautions are in place.
[2020-06-10 20:00] VITALS: BP_SYST 120
--- NOTE | 2020-06-10 21:08 | NUR ---
Accucheck 241 and 4 units Humalog Insulin given SQ. Skin remains warm and dry to touch. Pt drank one cup of Glucerna.
[2020-06-10] MEDS: ATORVASTATIN 20 MG TABLET PO SCH (21:10)
--- NOTE | 2020-06-10 21:13 | NUR ---
Pt was screaming out loud, c/o 8/10 pain in both legs. Morphine 2mg given IVP. Pt's legs were placed on a pillow per his request. Call light is with pt and bed alarm is on.
--- NOTE | 2020-06-10 21:25 | NUR ---
Pt was seen and examined by Dr. Griffin. No new orders written.
--- NOTE | 2020-06-10 23:30 | NUR ---
Pt is sleeping without any distress noted. Fall and safety precautions are in place.
--- NOTE | 2020-06-11 01:30 | NUR ---
Pt continues to sleep without any distress noted. Fall and safety precautions are in place.
[2020-06-11 01:33] VITALS: BP_SYST 111
--- NOTE | 2020-06-11 03:30 | NUR ---
Sleeping without any respiratory distress noted.
--- NOTE | 2020-06-11 06:30 | NUR ---
Resting quietly in bed. No respiratory distress noted. Accucheck 133 this AM and no Insulin coverage needed. Skin remains warm and dry to touch. Will endorse to day shift nurse.
[2020-06-11] MEDS: ACETAMINOPHEN 500 MG TABLET PO PRN ×3 (06:39→20:12)
[2020-06-11 07:43] VITALS: BP_SYST 117
--- NOTE | 2020-06-11 08:00 | NUR ---
Patient is more alert/oriented today compare yesterday, breathing is WNL no sign of acute respiratory distress, assisted in feeding medication tolerates well with out aspiration, needs attended.
[2020-06-11] MEDS: MUPIROCIN 2% TOPICAL OINTMENT 22 GM NS SCH ×2 (08:43→20:13)
[2020-06-11] MEDS: ASPIRIN 81 MG TABLET(ECOTRIN) PO SCH (08:43)
[2020-06-11] MEDS: HYDROCORTISONE SOD SUCC 100 MG/2 ML VIAL IVP SCH (08:43)
[2020-06-11] MEDS: DULoxetine HCL 30 MG CAPSULE.DR (CYMBALTA) PO SCH (08:43)
[2020-06-11] MEDS: FLUCONAZOLE 200 MG TABLET (DIFLUCAN) PO SCH (08:43)
[2020-06-11] MEDS: DOCUSATE SODIUM 100 MG CAPSULE PO SCH ×2 (08:43→20:11)
[2020-06-11] MEDS: BISACODYL 10 MG/SUPPOSITORY RC SCH (08:43)
--- NOTE | 2020-06-11 10:53 | NUR ---
PATIENT RESTING: Patient resting quietly. No acute distress noted.
[2020-06-11] MEDS: INSULIN LISPRO SLIDING SCALE 100 UNITS/ML VIAL (humaLOG) SUBCUT PRN ×3 (11:23→20:17)
--- NOTE | 2020-06-11 11:37 | NUR ---
Skin care/comfort Complete TSB GIVEN ,Patient repositioned by staff every 2 hours with pillow support.
[2020-06-11 12:06] VITALS: BP_SYST 124
[2020-06-11] MEDS: LEVOFLOXACIN 250 MG/D5W 50 ML IV SCH (12:54)
--- NOTE | 2020-06-11 13:00 | NUR ---
Perineal care given had bowel movement skin cream barrier applied ,Patient repositioned by staff every 2 hours with pillow support.
--- NOTE | 2020-06-11 15:00 | NUR ---
Patient repositioned by staff every 2 hours with pillow support.
[2020-06-11 16:00] VITALS: BP_SYST 108
--- NOTE | 2020-06-11 16:53 | NUR ---
Patient resting denies any pain or discomfort , oral fluid given.
[2020-06-11] MEDS: ATORVASTATIN 20 MG TABLET PO SCH (20:11)
[2020-06-11 20:25] VITALS: BP_SYST 109
--- NOTE | 2020-06-11 20:25 | NUR ---
Opening notes Pt AAOx2, VSS, afebrile. No s/s distress noted. O2 2L via NC satting at 100%. Pt c/o generalized pain medicated w/ Tylenol 2 tabs PO as needed. BS checked 196, 2 units Humalog administered per protocol. CHANTELLE PICC line double lumen dressing C/D/I. Holbrook catheter secured, draining to gravity noted w/ pink tinged urine w/ sediment. Contact isolation maintained. Bed low, locked, siderails up x2, alarm on. Call light within reach. To monitor.
--- NOTE | 2020-06-11 22:30 | NUR ---
rounds Dr. Ace soto.
--- NOTE | 2020-06-11 23:35 | NUR ---
Rounds Pt awake, no s/s distress noted. Pt repositioned. Call light within reach. Bed low, locked, siderails up x2, alarm on. To monitor.
[2020-06-12 00:35] VITALS: BP_SYST 117
--- NOTE | 2020-06-12 00:46 | NUR ---
Rounds Pt asleep, no s/s distress noted. PICC line CHANTELLE dressing C/D/I. Holbrook catheter draining to gravity. Call light within reach. Bed maintained low, locked, siderails up x2, alarm on. To monitor.
[2020-06-12] MEDS: ACETAMINOPHEN 500 MG TABLET PO PRN ×3 (06:17→17:05)
--- NOTE | 2020-06-12 06:17 | NUR ---
Closing notes Pt alert, awake, no s/s distress noted. PICC line CHANTELLE dressing C/D/I, good blood return. Blood sugar checked 139. Pt medicated with Tylenol ES 2 tabs for c/o generalized pain. Holbrook catheter draining to gravity. Pt repositioned. Flavio SCDs on. Call light within reach. Bed maintained low, locked, siderails up x2, alarm on. To endorse to AM nurse.
[2020-06-12 06:56] LABS: CALCIUM 7.8 mg/dL (8.4-11.0); CREATININE 1.71 mg/dL (0.55-1.30)
--- NOTE | 2020-06-12 07:18 | NUR ---
Nutrition Update Marcelino Scale 14 noted. Pt admitted for Sepsis Diet: [facility] BMI: 23.8 kg/m2 RD to follow per nutrition care standards.
--- NOTE | 2020-06-12 07:20 | NUR ---
OPENING NOTES PT RESTING IN BED, CHEST RISE AND FALL NOTED. NONLABORED BREATHING NOTED, RECEIVING O2 AT 2LPM VIA NASAL CANNULA. PICC LINE INTACT AND PATENT, NO SIGNS OF INFILTRATION NOTED. GARCIA CATHETER INTACT AND DRAINING. NO ACUTE DISTRESS NOTED. ALL NEEDS MET. CALL LIGHT IN REACH. FALL AND ASPIRATION PRECAUTIONS IN PLACE. CONTINUE TO MONITOR.
[2020-06-12 07:37] LABS: POTASSIUM 2.6 mmol/L (3.5-5.1)
[2020-06-12 08:10] VITALS: BP_SYST 122
[2020-06-12 08:23] LABS: BASOPHILS # (AUTO) 0.1 K/uL (0.0-0.2); BASOPHILS % (AUTO) 0.5 % (0.0-2.0); EOSINOPHILS # (AUTO) 0.6 K/uL (0.0-0.4); EOSINOPHILS % (AUTO) 4.9 % (0.0-4.0); HEMATOCRIT 30.1 % (36-54); HEMOGLOBIN 9.9 g/dL (14.0-18.0); LYMPHOCYTES # (AUTO) 3.1 K/uL (1.0-5.5); LYMPHOCYTES % (AUTO) 24.9 % (20.5-51.5); MEAN CORPUSCULAR HEMOGLOBIN 29 pg (27-31); MEAN CORPUSCULAR HGB CONC 33 % (32-36); MEAN CORPUSCULAR VOLUME 89 fL (79.0-98.0); MONOCYTES % (AUTO) 8.2 % (1.7-9.3); NEUTROPHILS # (AUTO) 7.6 K/uL (1.8-7.7); PLATELET COUNT (AUTO) 159 K/uL (130-430); RED BLOOD CELL COUNT(AUTO) 3.37 MIL/uL (4.2-6.2); RED CELL DISTRIBUTION WIDTH 16.1 % (9.0-15.0); WHITE BLOOD COUNT (AUTO) 12.3 K/uL (4.8-10.8)
[2020-06-12] MEDS ORDERED: POTASSIUM CHLORIDE 40 MEQ in NS 250 ML IV ONE (08:45)
[2020-06-12] MEDS: BISACODYL 10 MG/SUPPOSITORY RC SCH (09:03)
[2020-06-12] MEDS: FLUCONAZOLE 200 MG TABLET (DIFLUCAN) PO SCH (09:03)
[2020-06-12] MEDS: DULoxetine HCL 30 MG CAPSULE.DR (CYMBALTA) PO SCH (09:03)
[2020-06-12] MEDS: HYDROCORTISONE SOD SUCC 100 MG/2 ML VIAL IVP SCH (09:03)
[2020-06-12] MEDS: DOCUSATE SODIUM 100 MG CAPSULE PO SCH ×2 (09:03→21:30)
[2020-06-12] MEDS: MUPIROCIN 2% TOPICAL OINTMENT 22 GM NS SCH ×2 (09:07→21:29)
[2020-06-12] MEDS: ASPIRIN 81 MG TABLET(ECOTRIN) PO SCH (09:07)
[2020-06-12] MEDS: MORPHINE 2 MG/ML INJ. SYRINGE IVP PRN ×2 (09:22→22:42)
--- NOTE | 2020-06-12 09:22 | NUR ---
ROUTINE MEDS/ PRN PAIN MEDS ROUTINE MEDS ADMINISTERED ORDERED PER MD, EDUCATION GIVEN, TOLERATED WELL. PT C/O PAIN, ADMINISTERED PAIN MEDS ORDERED, TOLERATED WELL. CONTINUE TO MONITOR.
[2020-06-12 10:52] LABS: NEUTROPHILS % (AUTO) 61.5 % (40.0-70.0)
--- NOTE | 2020-06-12 10:53 | NUR ---
CLEANED PT, HAD SOLID BM, NO BLEEDING NOTED. PT C/O PAIN, WILL ADMINISTERED PAIN MEDS ORDERED PER MD, EDUCATION GIVEN, TOLERATED WELL. CONTINUE TO MONITOR.
[2020-06-12] MEDS: INSULIN LISPRO SLIDING SCALE 100 UNITS/ML VIAL (humaLOG) SUBCUT PRN ×3 (11:21→21:37)
--- NOTE | 2020-06-12 11:24 | NUR ---
PT C/O PAIN, ADMINISTERED PAIN MEDS ORDERED PER MD, EDUCATION GIVEN, TOLERATED WELL. ACCUCHECK DONE, INSULIN COVERAGE ADMINISTERED PER SLIDING SCALE. CONTINUE TO MONITOR.
--- NOTE | 2020-06-12 11:28 | NUR ---
PATIENT GIVEN EDUCATION ON SIDE EFFECTS ON MED SHEET, PT VERBALIZED UNDERSTANDING.
[2020-06-12 11:29] VITALS: BP_SYST 105
--- NOTE | 2020-06-12 12:55 | NUR ---
ROUTINE MEDS ROUTINE MEDS ADMINISTERED ORDERED PER MD, EDUCATION GIVEN, TOLERATED WELL. LA DENIES PAIN AND SOB AT THIS TIME. CONTINUE TO MONITOR.
[2020-06-12] MEDS: LEVOFLOXACIN 250 MG/D5W 50 ML IV SCH (12:57)
--- NOTE | 2020-06-12 14:46 | NUR ---
FLU CONSENT PT UNABLE TO GIVE CONSENT DUE TO MEDICAL CONDITION, PT'S BROTHER JOHN NICHOLS GAVE CONSENT THROUGH THE PHONE, RODNEY MCKINLEY WITNESS. Addendum: 06/12/20 at 1449 by Rola Moffett RN TRANSFERRED CALL TO PT TO SPEAK TO BROTHER.
[2020-06-12 15:10] VITALS: BP_SYST 109
[2020-06-12] MEDS ORDERED: HEPARIN SODIUM,PORCINE 5,000 UNITS/ML VIAL SUBCUT ONE (15:45)
--- NOTE | 2020-06-12 16:35 | NUR ---
ROUTINE MEDS ADMINISTERED ORDERED PER MD, EDUCATION GIVEN, TOLERATED WELL. ACCUCHECK DONE, INSULIN COVERAGE ADMINISTERED PER SLIDING SCALE. PT STATED RECEIVING FLU VACCINE THIS YEAR IN MAY, F/U WITH FACILITY. WASTED FLU VACCINE, NOT GIVEN TO PATIENT AT THIS TIME.
--- NOTE | 2020-06-12 17:06 | NUR ---
PT C/O PAIN, ADMINISTERED PAIN MEDS ORDERED PER MD, EDUCATION GIVEN, TOLERATED WELL. CONTINUE TO MONITOR.
--- NOTE | 2020-06-12 18:51 | NUR ---
CLOSING NOTES PT AWAKE AND ALERT, WATCHING TV IN BED. NONLABORED BREATHING NOTED, RECEIVING O2 AT 2LPM VIA NASAL CANNULA, TOLERATING WELL. PICC LINE INTACT AND PATENT, NO SIGNS OF INFILTRATION NOTED. GARCIA CATHETER INTACT AND DRAINING. NO ACUTE DISTRESS NOTED. ALL NEEDS MET. BED ALARM ON. BED LOCKED AND IN LOWEST POSITION. CALL LIGHT IN REACH. FALL AND ASPIRATION AND ISOLATION PRECAUTIONS IN PLACE. WILL ENDORSE TO NOC NURSE INCLUDING CHECKING WITH FACILITY IF PT RECEIVED FLU VACCINE.
--- NOTE | 2020-06-12 19:30 | NUR ---
Initial note: Received report from sonam RN. Patient is in bed, watching TV. No acute distress. Even, nonlabored respirations on 2L nasal cannula. CHANTELLE PICC line is c/d/i. Holbrook is draing pink tinged urine with sediments. Bed is locked at lowest position. Side rails up x3. Bed alarm on. Call light is with patient. Contact, safety, and fall precautions in place. Will continue with plan of care.
[2020-06-12 20:00] VITALS: BP_SYST 129
--- NOTE | 2020-06-12 21:29 | NUR ---
REFUSED FLU VACCINE: Educated patient on indications for the flu vaccine. Patient refused flu vaccine at this time.
[2020-06-12] MEDS: ATORVASTATIN 20 MG TABLET PO SCH (21:30)
[2020-06-12] MEDS: HEPARIN SODIUM,PORCINE 5,000 UNITS/ML VIAL SUBCUT SCH (21:38)
--- NOTE | 2020-06-12 22:42 | NUR ---
Pain: Patient complained of severe generalized pain. Morphine 2mg IVP indicated. Educated patient on indications and side effects of medications. Patient verbalized understanding. Medication administered per MD order. Patient tolerated well. Will continue to monitor and reassess.
[2020-06-13] VITALS: BP_SYST 126
--- NOTE | 2020-06-13 01:05 | NUR ---
Rounds: Patient is watching TV. No signs of acute distress. Respirations are even, nonlabored on 2L nasal cannula. Call light is with patient. Contact, safety, and fall precautions in place. Will continue to monitor.
[2020-06-13] MEDS: ACETAMINOPHEN 500 MG TABLET PO PRN ×4 (03:01→18:03)
--- NOTE | 2020-06-13 03:01 | NUR ---
Pain: Patient complained of a 6/10 headache. Tylenol 1000mg PO indicated. Educated patient on indications and side effects of medication. Patient verbalized understanding. Medication administered per MD order. Patient tolerated well. Will continue to monitor and reassess.
--- NOTE | 2020-06-13 04:40 | NUR ---
Wound care: Wound care performed at this time per MD order and wound care nurse recommendations. Patient tolerated well.
[2020-06-13] MEDS: HEPARIN SODIUM,PORCINE 5,000 UNITS/ML VIAL SUBCUT SCH ×2 (06:12→13:04)
--- NOTE | 2020-06-13 06:22 | NUR ---
Closing note: Patient is in bed, resting. No acute distress. Even, nonlabored respirations on 2L nasal cannula. CHANTELLE PICC line is c/d/i. Holbrook is draining pink tinged urine to gravity. All needs met. Bed is locked at lowest position. Side rails up x3. Bed alarm on. Call light is with patient. Contact, safety, and fall precautions in place. Will endorse to sonam STEVENS.
--- NOTE | 2020-06-13 07:20 | NUR ---
OPENING NOTES PT RESTING IN BED, CHEST RISE AND FALL NOTED, EASILY AWAKEN. NONLABORED BREATHING NOTED, RECEIVING O2 AT 2LPM VIA NASAL CANNULA, TOLERATING WELL. PICC LINE INTACT AND PATENT, NO SIGNS OF INFILTRATION NOTED. GARCIA CATHETER INTACT AND DRAINING. NO S/S OF PAIN NOTED. ALL NEEDS MET. CALL LIGHT IN REACH. BED ALARM ON. BED LOCKED AND IN LOWEST POSITION. FALL, ISOLATION AND ASPIRATION PRECAUTIONS IN PLACE. CONTINUE TO MONITOR.
[2020-06-13 08:04] VITALS: BP_SYST 113
[2020-06-13] MEDS: DOCUSATE SODIUM 100 MG CAPSULE PO SCH (08:17)
[2020-06-13] MEDS: DULoxetine HCL 30 MG CAPSULE.DR (CYMBALTA) PO SCH (08:17)
[2020-06-13] MEDS: BISACODYL 10 MG/SUPPOSITORY RC SCH (08:17)
[2020-06-13] MEDS: HYDROCORTISONE SOD SUCC 100 MG/2 ML VIAL IVP SCH (08:17)
[2020-06-13] MEDS: FLUCONAZOLE 200 MG TABLET (DIFLUCAN) PO SCH (08:17)
[2020-06-13] MEDS: ASPIRIN 81 MG TABLET(ECOTRIN) PO SCH (08:17)
[2020-06-13] MEDS: MUPIROCIN 2% TOPICAL OINTMENT 22 GM NS SCH (08:18)
--- NOTE | 2020-06-13 08:27 | NUR ---
ROUTINE MEDS ROUTINE MEDS ADMINISTERED ORDERED PER MD, EDUCATION GIVEN, TOLERATED WELL. CONTINUE TO MONITOR. AWAITING FLONASE FROM PHARM.
[2020-06-13] MEDS ORDERED: FLUTICASONE PROPIONATE 50 mCg/SPRAY 16 GM NS SCH (09:00)
--- NOTE | 2020-06-13 09:00 | NUR ---
PT C/O PAIN, ADMINISTERED PAIN MEDS ORDERED PER MD, EDUCATION GIVEN, TOLERATED WELL. CONTINUE TO MONITOR.
--- NOTE | 2020-06-13 09:25 | NUR ---
DC Planning: LVM to dr. Griffin asking for dcp vs discharge back to [facility].
[2020-06-13 11:29] VITALS: BP_SYST 111
[2020-06-13] MEDS: INSULIN LISPRO SLIDING SCALE 100 UNITS/ML VIAL (humaLOG) SUBCUT PRN ×2 (12:10→17:59)
[2020-06-13] MEDS: LEVOFLOXACIN 250 MG/D5W 50 ML IV SCH (12:11)
--- NOTE | 2020-06-13 12:21 | NUR ---
ACCUCHECK AND IV ABX ACCUCHECK DONE, INSULIN COVERAGE ADMINISTERED PER SLIDING SCALE. IV ABX ADMINISTERED ORDERED PER MD, EDUCATION GIVEN, TOLERATED WELL. CONTINUE TO MONITOR.
--- NOTE | 2020-06-13 13:05 | NUR ---
PRN PAIN MEDS/ ROUTINE MEDS PT C/O PAIN, ADMINISTERED PRN PAIN MEDS AND ROUTINE MEDS, TOLERATED WELL. CONTINUE TO MONITOR.
[2020-06-13 14:10] LABS: HIV-1 RNA BY PCR <20 copies/mL (.)
--- NOTE | 2020-06-13 14:20 | NUR ---
Nutrition F/U RD reviewed pt's current EMR record including diet hx, MD notes, RN notes, pertinent labs/meds/procedures, care trends, and care activity. Admitting Diagnosis Sepsis Reviewed Pertinent Medical/Surgical Hx Medical Record Patient Other Medical History Comment: PMH: HIV, HLD, glaucoma per physician notes SARS-CoV-2 Ag (Rapid) Negative 06/06 Subjective Information Pt noted as confused per MD note and RD visit deferred d/t isolation precautions and PPE conservation efforts. PO intake remains poor, with average PO slightly increased to 49% of last [address] assessment. Noted pt already receiving Glucerna TID and Reji BID. Recommend continue to encourage increase PO intakes during meal times. Pt is not meeting nutritional needs at this time. +BM noted 06/13. Current Diet Order/Nutrition Support CCHO, Glucerna TID, Reji BID x 5 days Pertinent Medications dulcolax suppository, colace, SSI, solucortef, lipitor Pertinent Labs (06/12) Na 138 WNL, K 2.6L, BUN 28 H (trending down), CRE 1.71 H (trending down), BG 138 H, (06/13) POC BG 102/251 H Skin Integrity Comment: Marcelino scale: 15; reviewed [employer] note 06/07: sDTI to sacral area Current % PO 49% x10 meals (slightly increased) Estimated Energy Expenditure (kcals/day) 4493-8791 kcal/day (MSJ x 1.2-1.5 CBW for sepsis, wound healing) Estimated Protein Required (g/day) 69-104 gm/day (1-1.5 gm/kg CBW for ARF, geriatric, wound, sepsis) Estimated Fluid Required (l/day) Per physician d/t ARF Problem/Etiology/Signs/Symptoms Suboptimal nutritional intakes related to possible lack of appetite as evidenced by poor PO intake records and inability to meet nutritional demands. *ongoing, but average PO intake slighty increased Altered nutrition-related labs related to endocrine dysfunction as evidenced by elevated BG and POC BG lab values. *ongoing, but w/ BG lab trending down Expected Outcomes/Goals - Monitor appetite and PO intakes w/ goal of pt meeting at least 50% of estimated nutritional needs, labs trending WNL, normal GI function, and skin integrity/wt maintenance Dietitian Recommendations * Recommend continue CCHO diet w/ Glucerna TID, Reji BID (supplements provide an additional 840 kcal/day, 35 gm protein/day) * If not contraindicated, consider appetite stimulant if poor PO intake persists. Follow Up High Risk: F/U in 2-3days
--- NOTE | 2020-06-13 14:27 | NUR ---
Discharge Planning: DEYANIRA faxed updated clinicals to [facility] ([phone]) patient will go to [facility], DEYANIRA arranged transportation with [facility] ([phone]) BLS Will Call. BURKEP made nurse, charge nurse and CM aware. Patient packet taken to nurse station. Addendum: 06/13/20 at 1526 by Karol FENG DEYANIRA changed P/U time for transportatio per charge nurse to 6:30pm with [facility] ([phone]) BLS
--- NOTE | 2020-06-13 14:29 | NUR ---
Dietitian Recommendations * Recommend continue CCHO diet w/ Glucerna TID, Reji BID (supplements provide an additional 840 kcal/day, 35 gm protein/day) * If not contraindicated, consider appetite stimulant if poor PO intake persists. Please see Nutrition F/U for details. CECILIA SEPULVEDA
[2020-06-13] MEDS: MORPHINE 2 MG/ML INJ. SYRINGE IVP PRN (14:48)
--- NOTE | 2020-06-13 14:48 | NUR ---
PT C/O PAIN, CHECKED BP, BP WNL, ADMINISTERED PAIN MEDS ORDERED PER MD, EDUCATION GIVEN, TOLERATED WELL. CONTINUE TO MONITOR.
--- NOTE | 2020-06-13 15:00 | NUR ---
SPOKE TO DR. SANDOVAL, PT OK TO D/C. CONTINUE LEVAQUIN AND DIFLUCAN FOR 5 MORE DAYS.
[2020-06-13] MEDS ORDERED: LEVO250P3 IV (15:35)
[2020-06-13] MEDS ORDERED: FLUC200T PO (15:36)
[2020-06-13 17:36] VITALS: BP_SYST 134
--- NOTE | 2020-06-13 18:00 | NUR ---
ACCUCHECK DONE, INSULIN COVERAGE ADMINISTERED PER SLIDING SCALE. PT C/O PAIN, ADMINISTERED PAIN MEDS ORDERED PER MD, EDUCATION GIVEN, TOLERATED WELL. CONTINUE TO MONITOR.
--- NOTE | 2020-06-13 18:03 | NUR ---
pt c/o pain administered pain meds as ordered per md, education given, tolerated well. removed 10ccs from balloon, and removed you catheter with tip intact, pt tolerated well.
--- NOTE | 2020-06-13 18:34 | NUR ---
SPOKE TO DR. SANDOVAL AT NURSE'S STATION, STATED THAT LEVAQUIN WILL BE PO AND TO REMOVE PICC LINE. [facility]ER[facility]. STATED WILL CHANGE THE MEDICATION AT THE FACILITY.
--- NOTE | 2020-06-13 19:05 | NUR ---
D/C Patient Patient given medication reconciliation form and D/C instructions. Exit Care provided. Patient verbalized understanding. MD discussed with patient the results and treatment provided. Returned to [facility]. Patient in stable condition, ID band removed. PICC line removed, intact and dressing applied, no active bleeding. Dr. Griffin and Dr. Bello will follow patient to [facility]. Patient educated on pain management. All belongings sent with patient.
== END 2020-06-13 19:05 | DRG 871 ==
LOC: SED 06:45 → STU 09:42 → SIC 06-07 00:24 → STU 06-08 18:52
PROVIDERS: ADMIT Family Medicine; ATTEND Family Medicine
PROC: 02HV33Z Insertion of Infusion Device into Superior Vena Cava, Percutaneous Approach (ICD-10-PCS; principal; 2020-06-06)
PROC: B548ZZA Ultrasonography of Superior Vena Cava, Guidance (ICD-10-PCS; 2020-06-06)
DX: A41.9 Sepsis, unspecified organism (principal); R65.21 Severe sepsis with septic shock; N17.0 Acute kidney failure with tubular necrosis; G93.41 Metabolic encephalopathy; J18.9 Pneumonia, unspecified organism; N39.0 Urinary tract infection, site not specified; N12 Tubulo-interstitial nephritis, not specified as acute or chronic; I95.9 Hypotension, unspecified; E11.9 Type 2 diabetes mellitus without complications; E78.5 Hyperlipidemia, unspecified; F32.9 Major depressive disorder, single episode, unspecified; R09.02 Hypoxemia; B37.9 Candidiasis, unspecified; Z20.828 Contact with and (suspected) exposure to other viral communicable diseases; Z78.1 Physical restraint status; Z86.711 Personal history of pulmonary embolism
CPT/HCPCS: 36415; 36600; 71045; 76770; 78580-TC; 80048; 80053; 81000-TC; 82550-TC; 82607; 82728; 82746; 82803-TC; 82962; 83010; 83540-TC; 83550-TC; 83605; 83615-TC; 83880; 84443-TC; 84484; 85025; 85379; 85610-TC; 85730-TC; 87040-TC; 87081; 87086; 87536; 93005; 93970; 94640; 96361; 96365; 96375; 99285; A9540; C1751; G0378; J0696; J1644; J1720; J1956; J2060; J2270; J2543; J3480; J7030; J7050; J7060

== ENCOUNTER 2020-12-16 01:24 | Emergency (ER) | payer OTHER, MEDICAID, SELFPAY ==
[~2020-12-16] VITALS: Ht 172.7 cm; Wt 77.1 kg
[~2020-12-16 01:24] MED LIST: ACET-73 PO; ACET325T PO; ASPI-1393 PO; BISA10SU61 RC; CRAN500T2 PO; CYAN500T47 PO; CYM30 PO; DOCU-144 PO; DOLU1TAB PO; FERR-69 PO; FLUC200T PO; HYD10 PO; HYDR20TA PO; LACT10SO7 PO; LATA7.5D OP; LEVO250P3 IV; LIP20 PO
[2020-12-16 01:28] VITALS: BP_SYST 149
[2020-12-16 01:54] LABS: BILIRUBIN,URINE 2+ (NEGATIVE); BLOOD, URINE 3+ (NEGATIVE); CLARITY/URINE CLOUDY (CLEAR); COLOR,URINE YELLOW (YELLOW); GLUCOSE,URINE NEGATIVE (NEGATIVE); KETONES,URINE TRACE (NEGATIVE); LEUKOCYTE ESTERASE ,URINE 3+ (NEGATIVE); NITRITE, URINE NEGATIVE (NEGATIVE); PROTEIN URINE 3+ (NEGATIVE); UROBILINOGEN,URINE 0.2 (0.2-1.0)
[2020-12-16 01:58] LABS: BASOPHILS # (AUTO) 0.2 K/uL (0.0-0.2); EOSINOPHILS # (AUTO) 0.1 K/uL (0.0-0.4); EOSINOPHILS % (AUTO) 0.3 % (0.0-4.0); HEMATOCRIT 33.1 % (36-54); HEMOGLOBIN 10.6 g/dL (14.0-18.0); LYMPHOCYTES # (AUTO) 0.6 K/uL (1.0-5.5); LYMPHOCYTES % (AUTO) 2.9 % (20.5-51.5); MEAN CORPUSCULAR HEMOGLOBIN 26 pg (27-31); MEAN CORPUSCULAR HGB CONC 32 % (32-36); MEAN CORPUSCULAR VOLUME 82 fL (79.0-98.0); MONOCYTES # (AUTO) 1.4 K/uL (0.0-1.0); NEUTROPHILS # (AUTO) 17.9 K/uL (1.8-7.7); NEUTROPHILS % (AUTO) 88.8 % (40.0-70.0); PLATELET COUNT (AUTO) 253 K/uL (130-430); RED BLOOD CELL COUNT(AUTO) 4.02 MIL/uL (4.2-6.2); RED CELL DISTRIBUTION WIDTH 16.4 % (9.0-15.0); WHITE BLOOD COUNT (AUTO) 20.2 K/uL (4.8-10.8)
[2020-12-16 02:01] LABS: BARBITURATE, URINE NEGATIVE (NEG <=200); BENZODIAZEPINE, URINE NEGATIVE (NEG <=150); CANNABINOID, URINE NEGATIVE (NEG <=50); COCAINE, URINE NEGATIVE (NEG <=150); METHAMPHETAMINES SCREEN,URINE NEGATIVE (NEG <=500); OPIATE, URINE POSITIVE (NEG <=100); PHENCYCLIDINE SCREEN,URINE NEGATIVE (NEG <=25); UR TRICYCLIC ANTIDEPRESSANTS NEGATIVE (NEG <=300); URINE AMPHETAMINE NEGATIVE (NEG <=500); URINE METHADONE NEGATIVE (NEG <=200); URINE OXYCODONE SCREEN NEGATIVE (NEG <=100); URINE PROPOXYPHENE SCREEN NEGATIVE (NEG <=300)
[2020-12-16 02:06] LABS: BACTERIA,URINE MODERATE /HPF (None Seen); RBC,URINE >100 /HPF (0-3); WBC,URINE >100 /HPF (0-3)
[2020-12-16 02:08] LABS: ANION GAP 16 (5-15); CALCIUM 7.9 mg/dL (8.4-11.0); CHLORIDE 89 mmol/L (98-107); GLUCOSE 164 mg/dL (70-99); POTASSIUM 4.5 mmol/L (3.5-5.1); SODIUM SERUM 127 mmol/L (136-145); UREA NITROGEN, BLOOD 75 mg/dL (8-21)
[2020-12-16 02:10] LABS: INR 0.9 (0.80-1.20); PROTHROMBIN TIME 9.4 SECS (9.5-12.5)
[2020-12-16 02:12] LABS: GFR AFRICAN AMERICAN 11 mL/min (>90)
[2020-12-16 02:24] LABS: ALANINE AMINOTRANSFERASE 49 U/L (12-78); ALBUMIN 2.8 g/dL (3.4-4.8); ASPARTATE AMINOTRANSFERASE 88 U/L (10-37); TOTAL BILIRUBIN 0.5 mg/dL (0.0-1.0)
[2020-12-16 02:25] LABS: ACETAMINOPHEN < 1 ug/mL (1-30); ALCOHOL, BLOOD < 3 mg/dL (<10)
[2020-12-16] MEDS ORDERED: ASCO500T20 PO (02:37)
[2020-12-16] MEDS ORDERED: TAMS-11 PO (02:37)
[2020-12-16] MEDS ORDERED: GLIM1TAB PO (02:37)
[2020-12-16] MEDS ORDERED: TRAM50TA2 PO (02:37)
[2020-12-16] MEDS ORDERED: OMEP20CA15 PO (02:37)
[2020-12-16] MEDS ORDERED: MORP15TA60 PO (02:37)
[2020-12-16] MEDS ORDERED: MELA5TAB21 PO (02:37)
[2020-12-16] MEDS ORDERED: INSU100V SQ (02:37)
[2020-12-16] MEDS ORDERED: BUSP10TA3 PO (02:37)
[2020-12-16] MEDS ORDERED: POLY119P15 PO (02:37)
[2020-12-16] MEDS ORDERED: SENN8.6T19 PO (02:37)
[2020-12-16] MEDS ORDERED: GABA-529 PO (02:37)
[2020-12-16] MEDS ORDERED: MOM PO (02:37)
[2020-12-16 02:45] LABS: CKMB RELATIVE INDEX 1.1 (0.0-2.9); CREATINE KINASE MB 26.5 ng/mL (0-3.6)
[2020-12-16] MEDS ORDERED: NACL 0.9% 1,000 ML IV ONE (03:15)
[2020-12-16] MEDS ORDERED: ASPIRIN 325 MG TABLET PO ONE (03:30)
[2020-12-16 03:47] VITALS: BP_SYST 123
== END 2020-12-16 03:37 ==
LOC: SED 01:24
DX: I21.19 ST elevation (STEMI) myocardial infarction involving other coronary artery of inferior wall (principal); Z79.4 Long term (current) use of insulin; Z79.899 Other long term (current) drug therapy; Z20.822 Contact with and (suspected) exposure to COVID-19
CPT/HCPCS: 36415; 36600; 70450; 71045; 76376; 80053; 80307; 81000; 82550; 82553; 82803; 84484; 85025; 85610; 87081; 87086; 87426; 93005; 96360; 99285; G0480; G0481; G0482; J7030